=== PATIENT | female | born 1990 | race Caucasian/White ===

== ENCOUNTER 2018-08-12 17:43 | Emergency (ER) | payer MEDICAID ==
[2018-08-12 18:21] LABS: URINE BLOOD (Dip) POC 1+ (NEGATIVE); URINE GLUCOSE (Dip) POC Negative (NEGATIVE); URINE KETONES (Dip) POC Negative (NEGATIVE); URINE LEUKOCYTE EST (Dip) POC 2+ (NEGATIVE); URINE NITRITE (Dip) POC Negative (NEGATIVE); URINE TOTAL PROTEIN POC 2+ (NEGATIVE)
[2018-08-12] MEDS: CEPHALEXIN 500 MG CAP PO (18:48)
[2018-08-12] MEDS: ACETAMINOPHEN 500 MG TAB PO (18:48)
[2018-08-12] MEDS: PHENAZOPYRIDINE 100 MG TAB PO (18:48)
== END 2018-08-12 18:52 | disposition home or self-care (01) ==
LOC: FTE 18:52
DX: R30.0 Dysuria (principal)
CPT/HCPCS: 81003; 81025; 99283